=== PATIENT | male | born 1990 | race American Indian/Alaskan Native ===

== ENCOUNTER 2017-12-24 16:39 | Emergency (ER) | payer SELFPAY ==
[2017-12-24 16:49] VITALS: BP 110/71
== END 2017-12-24 16:48 | disposition left against medical advice (07) ==
LOC: ED 16:39
DX: K08.89 Other specified disorders of teeth and supporting structures (principal); Z53.21 Procedure and treatment not carried out due to patient leaving prior to being seen by health care provider

== ENCOUNTER 2018-08-08 13:02 | Emergency (ER) | payer SELFPAY ==
[2018-08-08 13:11] VITALS: BP 124/69
[2018-08-08] MEDS ORDERED: TYLENOL #3 PO ONE (13:47)
[2018-08-08] MEDS ORDERED: AUGMENTIN 875 MG PO ONE (13:47)
--- NOTE | 2018-08-08 13:47 | Emergency Department Report ---
HPI - General Chief Complaint: Dental/Oral Time Seen by Provider: 08/08/18 13:22 - HPI HPI: The patient is a 27-year-old male who presents to ED complaining of 10/10 pain in the right side of his mouth x 5 days . Patient states that the pain started 5 days ago and has increased in severity over the last 2-3 days. The pain is exacerbated by eating and opening of the mouth. Patient states that the swelling has increased in the past couple of days. Patient states that it radiates towards ear. Patient describes a as a throbbing, pressure-like sensation. Patient states otherwise well and has no other complaints. Patient has had no fevers and no chills. No chest pain, no shortness of breath. No abdominal pain. No shortness of breath or recent trauma to the face. ED Past Medical Hx - Past Medical History Previous Medical History?: No - Surgical History Past Surgical History?: No - Social History Smoking Status: Current Every Day Smoker Substance Use Type: None - Medications Home Medications: Home Medications Medication Instructions Recorded Confirmed Last Taken Type Acetaminophen/Codeine [Tylenol 1 tab PO Q6H #16 tablet 08/08/18 Unknown Rx /Codeine # 3 tab] Amoxicillin/K Clav Tab [Augmentin 1 each PO TID #21 tablet 08/08/18 Unknown Rx 875MG TAB] Ibuprofen [Motrin] 800 mg PO Q8HR #30 tablet 08/08/18 Unknown Rx ED Review of Systems ROS: Stated complaint: SWOLLEN JAW/TOOTHACE/HEADACHE Other details as noted in HPI Comment: All other systems reviewed and negative Physical Exam - Physical Exam Vital Signs: Vital Signs 08/08/18 13:08 Temperature 99.9 F H Pulse Rate 86 Respiratory 16 Rate Blood Pressure 124/69 O2 Sat by Pulse 99 Oximetry Physical Exam: GENERAL: Alert and oriented x3, no apparent distress, Normal Gait, atraumatic. HEAD: Head is normocephalic and a-traumatic. EARS: symetrical, atraumatic, non tender, ear canal clear and moderate cerumen, tympanic membrance non inflamed. gross auditory nml bilaterally. MOUTH:Mouth is well hydrated and without lesions. Tonsils nonerythematous or swo llen, Uvula midline, Tongue not elevated. Mucous membranes are moist. Posterior pharynx clear, no exudate or lesions. Patent airways. Gingival abscess. Tooth #29 and 30, no bleeding noted, right-sided lower swelling with tenderness to palpation NECK: Supple. Non edematous, No carotid bruits. No lymphadenopathy or thyromegaly. SKIN: Warm and dry, No lesions, No ulceration or induration present. ED Course Vital Signs 08/08/18 13:08 Temperature 99.9 F H Pulse Rate 86 Respiratory 16 Rate Blood Pressure 124/69 O2 Sat by Pulse 99 Oximetry ED Medical Decision Making - Medical Decision Making 27-year-old male who presents with right-sided Facial pain secondary to odontogenic abscess ED course: Patient received 875 mg of augmentin, 2 tablets of Tylenol No. 3. Odontogenic infection versus ear infection. Based upon history and physical examination, pain is a result of an infection of tooth number 29, 30 and that the pain Pt feels on the right side of his face and towards the ear is referred pain from this infectious process. Pt has no evidence of acute impending airway compromise. At this point, patient will be discharged home on some antibiotics and pain trial, she will do well with an outpatient course of antibiotics. Follow up with the Dental Clinic as referred Vital signs are normal patient is in no acute distress. Pt had an effect uneventful ED stay Critical care attestation.: If time is entered above; I have spent that time in minutes in the direct care of this critically ill patient, excluding procedure time. ED Disposition Clinical Impression: Dental abscess Disposition: - TO HOME OR SELFCARE Is pt being admited?: No Does the pt Need Aspirin: No Condition: Stable Instructions: Dental Abscess (ED) Additional Instructions: Make sure to follow up with the dentist as discussed. Take all your medications as you've been prescribed. If you have any worsening symptoms or develop new symptoms please return to ED immediately. Prescriptions: Acetaminophen/Codeine [Tylenol /Codeine # 3 tab] 1 tab PO Q6H #16 tablet Amoxicillin/K Clav Tab [Augmentin 875MG TAB] 1 each PO TID #21 tablet Ibuprofen [Motrin] 800 mg PO Q8HR #30 tablet Referrals: BEV HARVEY MD [Primary Care Provider] - 3-5 Days [facility] [Outside] - 3-5 Days [facility] [Outside] - 3-5 Days Forms: Accompanied Note, Work/School Release Form(ED) Time of Disposition: 14:05
== END 2018-08-08 14:26 | disposition home or self-care (01) ==
LOC: ED 13:02
DX: K04.7 Periapical abscess without sinus (principal); F17.200 Nicotine dependence, unspecified, uncomplicated
CPT/HCPCS: 99282